=== PATIENT | male | born 1965 | race African-American/Black ===

== ENCOUNTER 2020-04-18 05:19 | Emergency (ER) | payer BC, OTHER ==
[~2020-04-18] VITALS: Ht 180.3 cm; Wt 82.1 kg
[2020-04-18] MEDS ORDERED: BUPIVACAINE 0.5% P/F INJ 10 ML VIAL ONE (05:27)
[2020-04-18] MEDS ORDERED: ceFAZolin IM 1GM/2.5ML STERILE WATER IM ONE (06:45)
[2020-04-18] MEDS ORDERED: TETANUS-DIPTH-ACEL PERTUSSIS 0.5ML SYR Tdap IM ONE (06:45)
[2020-04-18] MEDS ORDERED: ONDANSETRON HCL 4 MG/2 ML VIAL IV ONE (07:15)
[2020-04-18] MEDS ORDERED: MORPHINE SULF INJ 2 MG/ML SYRINGE 1ML IV ONE (07:15)
[2020-04-18 08:01] VITALS: BP 146/89
[2020-04-18] MEDS ORDERED: BACITRACIN TOP OINT 1 UD PKG TOP ONE (08:27)
[2020-04-18] MEDS ORDERED: ACET-1079 PO (08:37)
[2020-04-18] MEDS ORDERED: AMOX500T86 PO (08:37)
== END 2020-04-18 09:55 | disposition home or self-care (01) ==
LOC: ER 05:19
DX: S68.110A Complete traumatic metacarpophalangeal amputation of right index finger, initial encounter (principal); W54.0XXA Bitten by dog, initial encounter; Y93.89 Activity, other specified; Y92.89 Other specified places as the place of occurrence of the external cause; Y99.8 Other external cause status
CPT/HCPCS: 12001; 73130; 90471; 90715; 96372; 96374; 96375; 99284; J0690; J2270; J2405; J3490